=== PATIENT | male | born 1960 | race Caucasian/White ===

== ENCOUNTER 2016-11-24 14:15 | Emergency (ER) | payer OTHER ==
--- NOTE | ~2016-11-24 | CT2 ---
[facility]. [facility] A Service of [facility] RADIOLOGY TEXT RESULTS PATIENT: YURI ROBLEDO LOCATION: SED : 56 UNIT #: [id number] AGE: [address]: AGUEDA DE SEX: M ORDER DR: [id number] [place] [id number] E MR#: [id number] #: [id number] NAME: YURI ROBLEDO. : 1960 SEX: M STUDY DATE/TIME: 11/24/2016 14:56 UNIT: SED ROOM: STUDY DESCRIPTION: CT Abd and Pelv W Cont Attending Physician: Agueda De Aprn Ordering Physician: Agueda De Aprn Primary Care Physician: Cindy Saleh M.D. MEDICAL IMAGING REPORT This report is preliminary unless electronic signature is present. EXAM CT abdomen and pelvis HISTORY Lower chest upper abdomen pain x1 week, worse today with nausea vomiting. TECHNIQUE CT abdomen and pelvis performed with intravenous administration of 100 mL Isovue-370. This CT exam was performed with one or more of the following radiation dose reduction techniques: automatic exposure control, adjustment of mA and/or kV according to patient size, and iterative reconstruction. COMPARISON STUDIES 06/21/2012. FINDINGS Visualized thyroid unremarkable. No axillary mediastinal or hilar adenopathy. Heart mildly enlarged. No pleural effusions. Patchy and linear/band-like airspace disease bilateral lung bases probably predominately atelectatic in nature. Some areas of pneumonitis could be present. Liver unremarkable. Gallbladder, nearly decompressed. The spleen and small accessory spleen are unremarkable. Evidence of pancreatitis. Mild peripancreatic fat stranding and haziness with trace amount of fluid adjacent to the inferior aspect of the pancreatic tail. No drainable fluid collection, pancreatic pseudocyst, or pancreatic mass lesion seen. Cause for pancreatitis unclear on basis of this examination. Short-interval followup to confirm resolution recommended. Adrenal glands, kidneys, urinary bladder unremarkable. [facility] A Service [facility] RADIOLOGY TEXT RESULTS PATIENT: YURI ROBLEDO LOCATION: SED : 56 UNIT #: [id number] AGE: [address]: AGUEDA DE SEX: M ORDER DR: CT Pelvis: No inguinal adenopathy. No free fluid in pelvis. No pelvic or retroperitoneal adenopathy. Esophagus, stomach, small bowel, appendix, colon shows no acute abnormality. There is evidence of prior sigmoid resection. There is uncomplicated sigmoid diverticulosis. No abnormal soft tissue along the sigmoid anastomoses suture line. No aortic aneurysm. Prior L4 - L5 posterior fusion orthopedic hardware appears intact. No acute-appearing bony abnormality. IMPRESSION 1. Mild acute pancreatitis. Peripancreatic fat stranding and haziness more pronounced adjacent to the pancreatic tail. There is a trace amount of fluid along the inferior aspect of the pancreatic tail. Not a drainable fluid collection. Trace amount of fluid adjacent to the pancreatic head and second portion of duodenum, also not drainable. Cause for pancreatitis unclear. No mass lesion is seen. No pancreatic cyst or pseudocyst. Followup to confirm resolution recommended. 2. The gallbladder is nearly decompressed. No radiodense gallstones are seen. There is no biliary ductal dilatation or pancreatic ductal dilatation. 3. Patchy and band-like densities bilateral lung bases probably predominately atelectatic in nature. Some components of pneumonitis could be considered. Weight should be given clinical assessment. 4. No other acute abnormalities are seen in the abdomen or pelvis. 5. Stable postoperative changes of sigmoid resection. No abnormal soft tissue along the anastomotic line. 6. Uncomplicated sigmoid diverticulosis. 7. Appendix normal. 8. Postoperative changes L4-L5 posterior orthopedic fusion. Orthopedic hardware appears intact. Dictated by... Sheldon Lira M.D. THIS IS AN ELECTRONICALLY VERIFIED REPORT Sheldon Lira M.D. at 11/25/2016 8:13 AM Radha TD: 11/24/2016 23:39 JOB #: [id number] MEDICAL IMAGING REPORT Page 1 of 1
--- NOTE | ~2016-11-24 | CT55 ---
[facility]. [facility] A Service of [facility] & [facility] RADIOLOGY TEXT RESULTS PATIENT: YURI ROBLEDO LOCATION: SED : 56 UNIT #: [id number] AGE: [address]: AGUEDA DE SEX: M ORDER DR: [id number] [place] [id number] E MR#: [id number] Acc #: [id number] NAME: YURI ROBLEDO. : 1960 SEX: M STUDY DATE/TIME: 11/24/2016 16:25 UNIT: SED ROOM: STUDY DESCRIPTION: CT Chest W Con Attending Physician: Agueda De Aprn Ordering Physician: Agueda De Aprn Primary Care Physician: Cindy Saleh M.D. MEDICAL IMAGING REPORT This report is preliminary unless electronic signature is present. EXAM CT chest HISTORY Chest, lower chest/upper abdomen pain 1 week worse today with nausea/vomiting. TECHNIQUE CT chest performed with intravenous administration 100 mL Isovue-370. This CT exam was performed with one or more of the following radiation dose reduction techniques: Automatic exposure control, adjustment of mA and/or kV according to patient size, and iterative reconstruction. FINDINGS Thyroid unremarkable. No adenopathy. Heart upper limits of normal in size to borderline enlarged. No pleural effusions. Please see dedicated CT abdomen and pelvis for discussion of findings below diaphragm. Patchy and linear/band-like densities in the dependent portions of the lungs bilaterally, more pronounced at the lung bases. Probably predominantly atelectatic in nature. Some components of bibasilar pneumonitis could be considered. Weight should be given clinical assessment. No suspicious nodule. No areas of dense airspace consolidation. The vascular structures are unremarkable. The visualized bony structures show no acute abnormality. IMPRESSION 1. Patchy and linear/band-like densities in bilateral dependent lungs, more pronounced at the lung bases. Probably predominantly atelectatic in nature. Some components of pneumonitis/pneumonia could be considered. Weight should be given clinical assessment. No dense airspace disease. No pleural effusion, pneumothorax or suspicious nodule. 2. Heart upper limits of normal in size to borderline enlarged. [facility] A Service of [facility] & [facility] RADIOLOGY TEXT RESULTS PATIENT: YURI ROBLEDO LOCATION: SED : 56 UNIT #: [id number] AGE: [address]: AGUEDA DE SEX: M ORDER DR: 3. Please see dedicated CT abdomen and pelvis for discussion of significant abnormalities in the abdomen. Dictated by... Sheldon Lira M.D. THIS IS AN ELECTRONICALLY VERIFIED REPORT Sheldon Lira M.D. at 11/25/2016 8:13 AM STEPHEN/shavonne TD: 11/24/2016 23:49 JOB #: [id number] MEDICAL IMAGING REPORT Page 1 of 1
--- NOTE | ~2016-11-24 | EKG ---
PATIENT: YURI ROBLEDO UNIT #: [id number] Ventricular Rate: 84 BPM Atrial Rate: 84 BPM P-R Interval: 150 ms QRS Duration: 78 ms Q-T Interval: 370 ms QTC Calculation(Bezet): 437 ms P [place]: 25 degrees Calculated R [place]: -5 degrees Calculated T [place]: 13 degrees Diagnosis Line: Normal sinus rhythm Diagnosis Line: Moderate voltage criteria for LVH, may be normal Diagnosis Line: variant Diagnosis Line: Inferior infarct , age undetermined Diagnosis Line: Abnormal ECG Diagnosis Line: No previous ECGs available Diagnosis Line: Confirmed by MAGALY POSEY MD ([id number]) on Diagnosis Line: 12/04/2016 8:27:04 AM INTERPRETING MD: TATY SINGH
[~2016-11-24 14:15] MED LIST: BP MED; KEFLEX500 MG PO; MAGIC MOUTHWASH PO; NO MEDICATIONS; PHENERGAN DM1 ML PO
[2016-11-24 15:11] LABS: BASOPHIL% 0.1 % (0-2.5); EOSINOPHIL# 0.1 X10e3 (0-0.7); EOSINOPHIL% 1.6 % (0.0-7.0); HEMATOCRIT 40.5 % (38.0-50.0); HEMOGLOBIN 14.1 gm/dL (13.0-16.0); LYMPHOCYTE# 0.7 X10e3 (1.0-3.5); LYMPHOCYTE% 7.4 % (17.0-45.0); MEAN CORPUSCULAR HEMOGLOBIN 31.3 PG (28-34); MEAN CORPUSCULAR HGB CONC 34.8 g/dL (30-36); MEAN PLATELET VOLUME 8.7 FL (6.5-11.5); MONOCYTE# 0.6 X10e3 (0-1.0); MONOCYTE% 6.9 % (3.0-12.0); NEUTROPHIL# 7.4 X10e3 (1.5-7.1); PLATELET COUNT 181 X10e3 (140-420); WHITE BLOOD COUNT 8.9 X10e3 (4.0-10.5)
[2016-11-24 15:19] LABS: DIFF IND NO
[2016-11-24 15:34] LABS: POC - CKMB <1.0 ng/mL (0.0-7.9); POC - TROPONIN <0.05 ng/mL (<=0.05)
[2016-11-24 15:56] LABS: ALBUMIN SERUM 4.4 g/dL (3.5-5.0); BILIRUBIN, DIRECT 0.9 mg/dL (0.0-0.2); BILIRUBIN,INDIRECT 1.3 mg/dL (0.0-0.9); BILIRUBIN,TOTAL 2.2 mg/dL (0.2-2.0); BUN/CREATININE RATIO 16.15; CALCIUM SERUM 8.9 mg/dL (8.4-10.2); CREATININE SERUM 1.3 mg/dL (0.6-1.4); GLOM FILT RATE Estimated 60.2 mL/min (>60); POTASSIUM 3.7 mmol/L (3.5-5.1); PROTEIN TOTAL SERUM 8.1 g/dL (6.0-8.3)
== END 2016-11-24 19:10 ==
LOC: SED 14:15
PROVIDERS: Nurse Practitioner Family
DX: K85.90 Acute pancreatitis without necrosis or infection, unspecified (principal); E86.0 Dehydration; R07.9 Chest pain, unspecified; R11.2 Nausea with vomiting, unspecified; R82.99 Other abnormal findings in urine; E78.5 Hyperlipidemia, unspecified; I10 Essential (primary) hypertension; Z98.890 Other specified postprocedural states
CPT/HCPCS: 36415; 71260; 74177; 80048; 80076; 82150; 82553; 83690; 84484; 85025; 93005; 96374; 96375; 99285; J1170; J2270; J2405; Q9967